=== PATIENT | female | born 1950 | race Caucasian/White ===

== ENCOUNTER 2016-09-21 07:51 | Emergency (ER) | payer BC ==
--- NOTE | 2016-09-21 08:11 | EDM.PDOC ---
ED HPI GENERAL MEDICAL PROBLEM - General Chief Complaint: Chest Pain Stated Complaint: [id number] PAIN IN CENTER OF CHEST HEART BURN Time Seen by Provider: 09/21/16 08:10 Source of Information: Reports: Patient, Old Records, RN, RN Notes Reviewed History Limitations: Reports: No Limitations - History of Present Illness INITIAL COMMENTS - FREE TEXT/NARRATIVE: C/O pain in the upper abdomen and chest that was present this morning when she woke. Last ate yesterday evening, some grilled sausages. Pt reports Hx of GERD and a "malrotation of the gut". Denies Hx of heart disease. Pt describes the pain as a pressure and burning, and feels the need to repeatedly belch. Denies radiating pain, SOB, N/V, palpitations, rapid HR, edema, cough, or any other Sx' s. She has not taken her protonix for several weeks. Onset: Today Duration: Constant Location: Reports: Chest, Abdomen Quality: Reports: Ache, Burning, Pressure Severity: Moderate Improves with: Reports: None Worsens with: Reports: None Associated Symptoms: Reports: No Other Symptoms Middle Chest Pain Score (Numeric/FACES): 4 - Related Data Allergies Allergy/AdvReac Type Severity Reaction Status Date / Time seasonal Allergy Sneezing Uncoded 09/21/16 08:05 Home Meds: Home Meds Fexofenadine [Carlie] 180 mg PO DAILY PRN 08/25/15 [History] Hydrochlorothiazide 25 mg PO DAILY 08/25/15 [History] Meclizine [Antivert] 12.5 mg PO Q6H PRN 08/25/15 [History] Valsartan [Diovan] 80 mg PO DAILY 08/25/15 [History] Omeprazole [Omeprazole] 40 mg PO DAILY PRN 09/21/16 [History] Pantoprazole Sodium PRN 09/21/16 [History] Past Medical History HEENT History: Reports: Allergic Rhinitis, Impaired Vision Other HEENT History: wears glasses Cardiovascular History: Reports: Hypertension Respiratory History: Reports: None Gastrointestinal History: Reports: GERD, Other (See Below) Other Gastrointestinal History: malrotation of instine Genitourinary History: Reports: None PROTEIN SPECIALIST History: Reports: None Musculoskeletal History: Reports: Arthritis Neurological History: Reports: Other (See Below) Psychiatric History: Reports: None Endocrine/Metabolic History: Reports: None Hematologic History: Reports: None Immunologic History: Reports: None Oncologic (Cancer) History: Reports: None Dermatologic History: Reports: None - Infectious Disease History Infectious Disease History: Reports: Chicken Pox, Mumps - Past Surgical History Cardiovascular Surgical History: Reports: Other (See Below) Social & Family History - Family History HEENT: Reports: Glaucoma (mother) Neurological: Reports: Alzheimers Disease Oncologic: Reports: Other (See Below) - Tobacco Use Smoking Status *Q: Former Smoker Second Hand Smoke Exposure: No - Recreational Drug Use Recreational Drug Use: No - Living Situation & Occupation Living situation: Reports: Occupation: Retired ED ROS GENERAL - Review of Systems Review Of Systems: ROS reveals no pertinent complaints other than HPI. ED EXAM, GENERAL - Physical Exam Exam: See Below Exam Limited By: No Limitations General Appearance: Alert, WD/WN, No Apparent Distress Eye Exam: Bilateral Eye: Normal Inspection Ears: Normal External Exam, Hearing Grossly Normal Nose: Normal Inspection, Normal Mucosa, No Blood Throat/Mouth: Normal Inspection, Normal Lips, Normal Teeth, Normal Gums, Normal Oropharynx, Normal Voice, No Airway Compromise Head: Atraumatic, Normocephalic Neck: Normal Inspection, Supple, Non-Tender, Full Range of Motion Respiratory/Chest: No Respiratory Distress, Lungs Clear, Normal Breath Sounds, No Accessory Muscle Use, Chest Non-Tender Cardiovascular: Normal Peripheral Pulses, Regular Rate, Rhythm, No Edema, No Gallop, No JVD, No Murmur, No Rub GI/Abdominal: Normal Bowel Sounds, Soft, No Distention, No Abnormal Bruit, Tender (mild epigastric tenderness). No: Guarding, Rigid, Rebound (Female) Exam: Deferred Rectal (Female) Exam: Deferred Back Exam: Normal Inspection, Full Range of Motion. No: CVA Tenderness (L), CVA Tenderness (R) Extremities: Normal Inspection, Normal Range of Motion, Non-Tender, Normal Capillary Refill, No Pedal Edema Neurological: Alert, Oriented, CN II-XII Intact, Normal Cognition, Normal Gait, No Motor/Sensory Deficits Psychiatric: Normal Affect, Normal Mood Skin Exam: Warm, Dry, Intact, Normal Color, No Rash EKG INTERPRETATION EKG Date: 09/21/16 Time: 07:54 Rhythm: Other (SR) [place]: Normal P-Wave: Present QRS: Normal ST-T: Normal QT: Normal Comparison: NA - No Prior EKG EKG Interpretation Comments: No acute ischemic changes. Course - Vital Signs Last Recorded V/S: Last Vital Signs Temp 36.4 C 09/21/16 08:00 Pulse 89 09/21/16 08:42 Resp 14 09/21/16 08:42 BP 110/61 09/21/16 08:42 Pulse Ox 98 09/21/16 08:42 - Orders/Labs/Meds Orders: Active Orders 24 hr Category Date Time Status EKG 12 Lead [EKG Documentation Completion] [RC] STAT Care 09/21/16 08:16 Active Peripheral IV Care [RC] . DIRECTED Care 09/21/16 08:16 Active Chest 1V Frontal [CR] Stat Exams 09/21/16 08:16 Taken Nitroglycerin [Nitrostat] Med 09/21/16 08:17 Active 0.4 mg SL Q5M PRN Sodium Chloride 0.9% [Saline Flush] Med 09/21/16 08:16 Active 10 ml FLUSH ASDIRECTED PRN Peripheral IV Insertion Adult [OM.PC] Stat Oth 09/21/16 08:16 Ordered Medication Orders Nitroglycerin (Nitrostat) 0.4 mg SL Q5M PRN PRN Reason: Chest Pain Last Admin: 09/21/16 08:34 Dose: 0.4 mg Sodium Chloride (Saline Flush) 10 ml FLUSH ASDIRECTED PRN PRN Reason: Keep Vein Open Last Admin: 09/21/16 08:27 Dose: 10 ml Labs: Laboratory Tests 09/21/16 09/21/16 Range/Units 08:00 08:00 WBC 6.1 (5.0-10.0) 10^3/uL RBC 4.42 (4.2-5.4) 10^6/uL Hgb 14.2 (12.0-16.0) g/dL Hct 41.8 (37.0-47.0) % MCV 94.6 (80-100) fL MCH 32.1 (27.0-34.0) pg MCHC 34.0 (33.0-35.0) g/dL Plt Count 207 (150-450) 10^3/uL Neut % (Auto) 42.1 L (42.2-75.2) % Lymph % (Auto) 43.0 (20.5-50.1) % [place] % (Auto) 8.5 H (2-8) % Eos % (Auto) 6.2 H (1.0-3.0) % Baso % (Auto) 0.2 (0.0-1.0) % Sodium 142 (135-145) mmol/L Potassium 3.3 L (3.6-5.0) mmol/L Chloride 101 (101-111) mmol/L Carbon Dioxide 28.0 (21.0-31.0) mmol/L Anion Gap 16.3 BUN 14 (7-18) mg/dL Creatinine 0.6 (0.6-1.3) mg/dL Est Cr Clr Drug Dosing 74.92 mL/min Estimated GFR (MDRD) > 60 BUN/Creatinine Ratio 23.33 Glucose 110 H (74-105) mg/dL Calcium 9.7 (8.4-10.2) mg/dl Total Bilirubin 0.8 (0.2-1.0) mg/dL AST 20 (10-42) IU/L ALT 17 (10-60) IU/L Alkaline Phosphatase 59 (42-121) IU/L Troponin I < 0.02 (0.00-0.02) ng/ml Total Protein 7.7 (6.7-8.2) g/dl Albumin 4.5 (3.2-5.5) g/dl Globulin 3.2 Albumin/Globulin Ratio 1.41 Amylase 41 (28-100) U/L Lipase 21 L (22-51) U/L Meds: Medications Generic Name Dose Route Start Last Admin Trade Name Fresabrina PRN Reason Stop Dose Admin Nitroglycerin 0.4 mg 09/21/16 08:17 09/21/16 08:34 Nitrostat SL 0.4 mg Q5M PRN Administration Chest Pain Sodium Chloride 10 ml 09/21/16 08:16 09/21/16 08:27 Saline Flush FLUSH 10 ml ASDIRECTED PRN Administration Keep Vein Open Discontinued Medications Generic Name Dose Route Start Last Admin Trade Name Freq PRN Reason Stop Dose Admin Al Hydroxide/Mg Hydroxide 30 ml 09/21/16 08:17 09/21/16 08:27 Gi Cocktail PO 09/21/16 08:18 30 ml ONETIME ONE Administration Aspirin 324 mg 09/21/16 08:17 09/21/16 08:26 Aspirin PO 09/21/16 08:18 324 mg ONETIME ONE Administration Pantoprazole Sodium 40 mg 09/21/16 08:45 09/21/16 08:52 Protonix Iv IVPUSH 09/21/16 08:46 40 mg ONETIME ONE Administration - Radiology Interpretation Free Text/Narrative:: CXR: no acute process per Rad. report. - Re-Assessments/Exams Free Text/Narrative Re-Assessment/Exam: 09/21/16 08:59 Given the Hx and presentation, I feel the pt has a very low likelihood of cardiac ischemia causing her current Sx's. She has GI Sx's and a Hx of similar GI problems in the past. She has not had an upper endoscopy, and I have advised her to discuss this with her PCP and consider a referral to GI for an EGD. Departure - Departure Time of Disposition: 09:02 Disposition: Home, Self-Care 01 Condition: Good Clinical Impression: Atypical chest pain, Esophageal spasm Gastroesophageal reflux disease Qualifiers: Esophagitis presence: with esophagitis Qualified Code(s): K21.0 - Gastro- esophageal reflux disease with esophagitis Instructions: Nonspecific Chest Pain, [id number] Forms: ED Department Discharge Additional Instructions: Take your Protonix (Pantoprazole) once daily as prescribed. Follow up in clinic this week with your doctor and discuss a referral to a GI specialist for an upper endoscopy. Eat a bland diet, and eat bananas for extra potassium. - My Orders Last 24 Hours: My Active Orders 09/21/16 08:16 EKG 12 Lead [EKG Documentation Completion] [RC] STAT Peripheral IV Care [RC] . DIRECTED Chest 1V Frontal [CR] Stat Sodium Chloride 0.9% [Saline Flush] 10 ml FLUSH ASDIRECTED PRN Peripheral IV Insertion Adult [OM.PC] Stat 09/21/16 08:17 Nitroglycerin [Nitrostat] 0.4 mg SL Q5M PRN - Assessment/Plan Last 24 Hours: My Active Orders 09/21/16 08:16 EKG 12 Lead [EKG Documentation Completion] [RC] STAT Peripheral IV Care [RC] . DIRECTED Chest 1V Frontal [CR] Stat Sodium Chloride 0.9% [Saline Flush] 10 ml FLUSH ASDIRECTED PRN Peripheral IV Insertion Adult [OM.PC] Stat 09/21/16 08:17 Nitroglycerin [Nitrostat] 0.4 mg SL Q5M PRN
[2016-09-21] MEDS ORDERED: Sodium Chloride 0.9% 10 ML Syringe FLUSH PRN (08:16)
[2016-09-21] MEDS ORDERED: Nitroglycerin 0.4 MG Tab.SL SL PRN (08:17)
[2016-09-21] MEDS ORDERED: GI Cocktail Oral Solution 30 ML PO ONE (08:17)
[2016-09-21] MEDS ORDERED: Aspirin 81 MG Tab.Chew PO ONE (08:17)
[2016-09-21 08:34] LABS: CHLORIDE,CL 101 mmol/L (101-111); SODIUM,NA 142 mmol/L (135-145)
[2016-09-21 08:43] VITALS: BP 110/61
[2016-09-21] MEDS ORDERED: Pantoprazole 40 MG Vial IVPUSH ONE (08:45)
--- NOTE | 2016-09-23 09:56 | EKG ---
09/21/2016- NELY HIGGINBOTHAM - EKG per my reading shows sinus rhythm at a rate of [address] changes. MOD /[id number]
== END 2016-09-21 09:20 | disposition home or self-care (01) ==
LOC: DL.ED 07:51
DX: K21.0 Gastro-esophageal reflux disease with esophagitis (principal); R07.89 Other chest pain; H54.7 Unspecified visual loss; K22.4 Dyskinesia of esophagus; I10 Essential (primary) hypertension; K21.9 Gastro-esophageal reflux disease without esophagitis; M19.90 Unspecified osteoarthritis, unspecified site; Z87.891 Personal history of nicotine dependence; Z79.899 Other long term (current) drug therapy
CPT/HCPCS: 36415; 71010; 80053; 82150; 83690; 84484; 85025; 93005; 96374; 99285; A9270; C9113; J7050